=== PATIENT | female | born 1990 | race African-American/Black ===

== ENCOUNTER 2023-10-18 08:56 | Emergency (ER) | payer OTHER ==
[2023-10-18 09:11] VITALS: O2SAT 100
--- NOTE | 2023-10-18 10:04 | ED Physician Documentation ---
PD HPI OPHTHO - Stated complaint Stated Complaint: LT EYE PX - Chief complaint Chief Complaint: Heent - History obtained from History obtained from: Patient - Additional information Additional information: Patient is a 32-year-old female presenting for evaluation of left eye pain since this morning after her son accidentally scratched it. Denies any objects were involved. Reports discomfort to the left eye and having some photosensitivity. Does not wear contacts or glasses. No abnormal discharge. No changes to her vision.Denies concerns for foreign body. Review of Systems Constitutional: denies: Fever Eyes: denies: Decreased vision, Discharge PD PAST MEDICAL HISTORY - Past Medical History Past Medical History: No - Past Surgical History Past Surgical History: Yes /[employer]: section - Present Medications Home Medications: Ambulatory Orders Medication Instructions Recorded Confirmed Polymyxin B/Trimeth Ophth Drop 1 drops LEFTEYE Q3H 5 Days #1 each 10/18/23 [Polytrim Ophth Drops] Sertraline [Zoloft] 50 mg PO DAILY 10/18/23 10/18/23 - Allergies Allergies/Adverse Reactions: Allergies Allergy/AdvReac Type Severity Reaction Status Date / Time ibuprofen Allergy Anaphylaxis Verified 10/18/23 09:10 - Social History Does the pt smoke?: No Smoking Status: Never smoker Does the pt drink ETOH?: No Does the pt have substance abuse?: No - Immunizations Immunizations are current?: Yes - POLST Patient has POLST: No PD ED PE NORMAL - General General: Alert and oriented X 3, No acute distress - HEENT HEENT: Atraumatic, PERRL, EOMI, Moist mucous membranes, Pharynx benign - Respiratory Respiratory: No respiratory distress - Derm Derm: Warm and dry - Neuro Neuro: Normal speech PD ED PE EXPANDED - HEENT HEENT Visual: 1 - abrasion - Eyes Eyes: Visual acuity - see nn, PERRL, EOMI, Normal eyelids, No eyelid FB (everted), Nl conjunctiva/sclera, Corneal abrasion, Fluorescein uptake, Anterior chambers clear. No: Eyelid injury, Eyelid swelling, Eyelid erythema, Hyphema Results - Vitals Vitals: Vital Signs - 24 hr 10/18/23 10/18/23 09:07 10:15 Temperature 36.2 C L 36.3 C L Heart Rate 69 62 Respiratory 20 18 Rate Blood Pressure 130/77 125/75 O2 Saturation 100 100 Oxygen O2 Source Room air PD Medical Decision Making - ED course ED course: Patient with history and exam consistent with corneal abrasion. Visual acuity intact. No signs of foreign body. No signs of globe rupture. No signs of increased intraocular pressure. Patient counseled on treatment plan as well as concerning symptoms to return for. Departure - Departure Disposition: 01 Home, Self Care Clinical Impression: Left corneal abrasion Condition: Stable Instructions: ED Eye Injury Corneal Abrasion Prescriptions: Polymyxin B/Trimeth Ophth Drop [Polytrim Ophth Drops] 1 drops LEFTEYE Q3H 5 Days #1 each Comments: You have a scratch on your left cornea. Usually these will heal within a few days but I would recommend close follow-up if you continue to have any discomfort past 48 hours. Please follow-up with your primary care doctor or eye doctor if you have one. In the meanwhile I have sent a prescription for an antibiotic drop to [facility] in [place]. You can also use an anti- inflammatory such as ibuprofen or acetaminophen for pain. Please use this as directed while awake. Return to the emergency department with any worsening such as changes to your vision, redness or swelling. Forms: PCP List Discharge Date/Time: 10/18/23 10:15
[2023-10-18 10:23] VITALS: BP 125/75
== END 2023-10-18 10:15 | disposition home or self-care (01) ==
LOC: ED 08:56
DX: S05.02XA Injury of conjunctiva and corneal abrasion without foreign body, left eye, initial encounter (principal); W50.0XXA Accidental hit or strike by another person, initial encounter
CPT/HCPCS: 99283; 99284